=== PATIENT | female | born 1955 | race Caucasian/White ===

== ENCOUNTER → 2020-01-09 | Outpatient (CLI) | payer OTHER | LOC: SJCVCIMAG 07:46 | PROVIDERS: ATTEND Internal Medicine Cardiovascular Disease | DX: I08.3 Combined rheumatic disorders of mitral, aortic and tricuspid valves (principal); R94.31 Abnormal electrocardiogram [ECG] [EKG]; I10 Essential (primary) hypertension; E78.5 Hyperlipidemia, unspecified; Z79.899 Other long term (current) drug therapy; Z87.891 Personal history of nicotine dependence ==